=== PATIENT | female | born 1995 | race Caucasian/White ===

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

== ENCOUNTER → 2017-02-01 | Outpatient (CLI) | payer BC ==
--- NOTE | 2017-02-03 07:11 | RAD ---
HISTORY: Acute thoracic back pain Study: T-spine three view Comparison: None Findings: Normal alignment of the thoracic spine is maintained. The disk space height is maintained without s ignificant endplate sclerosis. No evidence for acute fracture can be identified. the pedicles are i ntact. The paraspinous soft tissues are normal. IMPRESSION: 1. Negative exam. Reported By:
--- NOTE | 2017-02-03 07:11 | RAD ---
HISTORY: Acute low back pain Study: Lumbar spine five view Comparison: None Findings: Normal alignment of the lumbar spine is maintained. The posterior elements appear unremarkable in t heir appearance. The disk space height is maintained without significant endplate sclerosis. No ev idence for acute fracture can be identified. No spondylolysis or spondylolisthesis is identified. Th e SI joints are normal. IMPRESSION: 1. Negative exam. Reported By:
== END | disposition home or self-care (01) | DRG 552 ==
LOC: RAD 17:28
PROVIDERS: ATTEND Physician Assistant Medical
DX: M54.5 Low back pain (principal); M54.6 Pain in thoracic spine
CPT/HCPCS: 72072; 72110